=== PATIENT | female | born 1995 | race Two or more races ===

== ENCOUNTER 2018-10-20 21:36 | Emergency (ER) | payer MEDICAID ==
[~2018-10-20] VITALS: Ht 154.9 cm; Wt 83.0 kg
[2018-10-20 22:40] VITALS: BP 109/75
== END 2018-10-21 01:08 | disposition left against medical advice (07) ==
LOC: ER 21:36
DX: O26.891 Other specified pregnancy related conditions, first trimester (principal); M54.9 Dorsalgia, unspecified; Z3A.08 8 weeks gestation of pregnancy; Z53.21 Procedure and treatment not carried out due to patient leaving prior to being seen by health care provider